=== PATIENT | male | born 1985 | race Caucasian/White ===

== ENCOUNTER 2023-06-28 09:30 | Emergency (ER) | payer MEDICAID, SELFPAY ==
[2023-06-28 09:36] VITALS: BP 122/75; PULSE 112; PULSE 97; RESP 16; O2SAT 100; O2SAT 99; BMI 22.2
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
[2023-06-28] MEDS: Acetaminophen 325 MG TABLET 975 MG PO (10:42)
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
== END 2023-06-28 10:55 ==
PROVIDERS: Emergency Provider Emergency Medicine
DX: S40.211A Abrasion of right shoulder, initial encounter (principal); M54.50 Low back pain, unspecified; R51.9 Headache, unspecified; W10.9XXA Fall (on) (from) unspecified stairs and steps, initial encounter; Y93.9 Activity, unspecified; Y92.9 Unspecified place or not applicable; Y99.9 Unspecified external cause status
CPT/HCPCS: 99284